=== PATIENT | female | born 1995 | race Caucasian/White ===

== ENCOUNTER 2018-06-09 13:21 | Emergency (ER) | payer OTHER ==
[~2018-06-09] VITALS: Wt 70.0 kg
[2018-06-09] MEDS ORDERED: SOD CHLORIDE 0.9% 1,000 ML IV STA (14:25)
[2018-06-09] MEDS ORDERED: KETOROLAC 30 MG INJ IV STA (14:25)
[2018-06-09] MEDS ORDERED: CEFTRIAXONE 1 GM/50 ML (PMX) 50 ML IVPB ONE (14:30)
[2018-06-09] MEDS ORDERED: DEXAMETHASONE 10 MG/ML 1 ML INJ IV ONE (14:30)
[2018-06-09] MEDS ORDERED: AMOX500C2 PO (16:08)
[2018-06-09] MEDS ORDERED: PRED20TA PO (16:08)
[2018-06-09] MEDS ORDERED: IBUP-1542 PO (16:08)
--- NOTE | 2018-06-09 16:11 | ERD ---
ER Documentation Chief Complaint Chief Complaint SORE THROAT X 6 DAYS, SEND BY CLINIC POSSIBLE ABCESS? HPI 22-year-old female presents with fever and sore throat for last 6 days. She has had 2- rapid strep test as well as a negative flu test. She was treated with Tamiflu earlier in the week. She was referred by urgent care for evaluation for peritonsillar abscess possibility. She has had difficulty swallowing. She denies cough, vomiting, abdominal pain, urinary complaints, rashes. ROS All systems reviewed and are negative except as per history of present illness. Medications Home Meds Active Scripts Prednisone* (Prednisone*) 20 Mg Tab, 40 MG PO DAILY for 4 Days, TAB Start June 10, 2018 Prov:FELISHA KIDD MD 06/09/18 Ibuprofen* (Motrin*) 600 Mg Tab, 600 MG PO Q6, #15 TAB Prov:FELISHA KIDD MD 06/09/18 Amoxicillin* (Amoxicillin*) 500 Mg Cap, 500 MG PO TID for 10 Days, CAP Prov:FELISHA KIDD MD 06/09/18 Allergies Allergies: Coded Allergies: No Known Allergy (Unverified , 06/09/18) FmHx Family History: No diabetes, No coronary disease, No other Physical Exam Vitals Vital Signs Date Temp Pulse Resp B/P (MAP) Pulse Ox O2 O2 Flow FiO2 Time Delivery Rate 06/09/18 98.1 88 18 118/73 99 13:27 (88) Physical Exam Const: No acute distress Head: Atraumatic Eyes: Normal Conjunctiva ENT: Normal External Ears, Nose and Mouth. Tonsils 3+ with severe exudate. Uvula midline. Airway patent. Minimal tender anterior cervical lymph nodes. Neck: Full range of motion. No meningismus. Resp: Clear to auscultation bilaterally Cardio: Regular rate and rhythm, no murmurs Abd: Soft, non tender, non distended. Normal bowel sounds Skin: No petechiae or rashes Back: No midline or flank tenderness Ext: No cyanosis, or edema Neur: Awake and alert Psych: Normal Mood and Affect Result Diagram: 06/09/18 1445 06/09/18 1527 Results 24 hrs Laboratory Tests Test 06/09/18 14:45 06/09/18 14:53 06/09/18 15:27 White Blood Count 5.6 10^3/ul Red Blood Count 4.27 10^6/ul Hemoglobin 13.7 g/dl Hematocrit 40.3 % Mean Corpuscular Volume 94.4 fl Mean Corpuscular Hemoglobin 32.1 pg Mean Corpuscular 34.0 g/dl Hemoglobin Concent Red Cell Distribution Width 11.8 % Platelet Count 189 10^3/UL Mean Platelet Volume 12.8 fl Immature Granulocytes % 0.200 % Neutrophils % 65.7 % Lymphocytes % 22.4 % Monocytes % 9.9 % Eosinophils % 1.4 % Basophils % 0.4 % Nucleated Red Blood Cells % 0.0 /100WBC Immature Granulocytes # 0.010 10^3/ul Neutrophils # 3.7 10^3/ul Lymphocytes # 1.3 10^3/ul Monocytes # 0.6 10^3/ul Eosinophils # 0.1 10^3/ul Basophils # 0.0 10^3/ul Nucleated Red Blood Cells # 0.0 10^3/ul POC Beta HCG, Qualitative NEGATIVE Sodium Level 141 mmol/L Potassium Level 4.3 mmol/L Chloride Level 104 mmol/L Carbon Dioxide Level 28 mmol/L Anion Gap 9 Blood Urea Nitrogen 14 mg/dl Creatinine 0.93 mg/dl Est Glomerular Filtrat Rate mL/min > 60 mL/min Glucose Level 87 mg/dl Calcium Level 9.4 mg/dl Total Bilirubin 0.3 mg/dl Direct Bilirubin 0.00 mg/dl Indirect Bilirubin 0.3 mg/dl Aspartate Amino Transf (AST/SGOT) 23 IU/L Alanine 17 IU/L Aminotransferase (ALT/SGPT) Alkaline Phosphatase 60 IU/L Total Protein 7.2 g/dl Albumin 3.7 g/dl Globulin 3.50 g/dl Albumin/Globulin Ratio 1.05 Monoscreen Positive Current Medications Medications Dose Sig/Luisa Start Time Status Last (Trade) Ordered Route PRN Stop Time Admin Dose Reason Admin Sodium 1,000 ml @ Q1H STAT 06/09/18 DC 06/09/18 Chloride 1,000 mls/hr IV 14:25 14:58 06/09/18 15:24 Ketorolac 30 mg ONCE STAT 06/09/18 DC 06/09/18 Tromethamine IV 14:25 14:59 (Toradol) 06/09/18 14:28 10 mg ONCE ONCE 06/09/18 DC 06/09/18 Dexamethasone IV 14:30 14:58 (Decadron) 06/09/18 14:31 Ceftriaxone 50 ml @ ONCE ONCE 06/09/18 DC 06/09/18 Sodium 100 mls/hr IVPB 14:30 14:58 06/09/18 14:59 Procedures/MDM Patient presents with signs and symptoms of severe exudative pharyngitis. She has no current evidence to suggest peritonsillar abscess, airway obstruction. Given duration of symptoms IV was obtained. Patient was given 1 L normal saline IV, Toradol 30 mill grams IV Decadron 10 mg IV as well as Rocephin 1 g IV. Patient had a positive Monospot with normal CBC normal CMP. hCG negative. Patient has symptoms of likely explained by mono. We will discharge home with, primary care follow-up and return precautions. We will administer prescription of amoxicillin as well for possible incidence of strep despite negative rapid strep test although patient given okay to hold to see if symptoms resolve with steroids and rest. The patient was stable with no new complaints during the ER course. Clinically, there is no current evidence to suggest meningitis, sepsis, acute abdomen, pneumonia, stroke, acute coronary syndrome, pulmonary embolism, aortic dissection or any other emergent condition appearing to require further evaluation or hospitalization. Patient counseled regarding my diagnostic impression and care plan. Prior to discharge all questions answered. Pt agrees with treatment plan and understands strict return precautions. Pt is instructed to follow up with primary care provider within 24-48 hours. Precautionary instructions provided including instructions to return to the ER if not improving or for any worsening or changing symptoms or concerns. Departure Diagnosis: Primary Impression: Sore throat Condition: Stable Patient Instructions: Mononucleosis, Pharyngitis, Strep (Presumed) Referrals: NO PRIMARY,CARE PHYSICIAN (PCP) Additional Instructions: Examination positive for mono which may be cause of symptoms. Will administer antibiotics for fever or sore throat despite adequate rest and steroids. Okay to hold for now. Drink plenty fluids at home. Recheck for new or worsening symptoms with primary care doctor. FELISHA KIDD MD Jun 09, 2018 16:11
[2018-06-09 16:24] VITALS: BP 112/79; PULSE 79; RESP 18
== END 2018-06-09 16:25 | disposition home or self-care (01) ==
LOC: FTE 13:21
DX: J02.9 Acute pharyngitis, unspecified (principal)
CPT/HCPCS: 36415; 80053; 81025; 85025; 86308; 96365; 96375; 99284; J0696; J1100; J1885; J7030